=== PATIENT | female | born 1985 | race Two or more races ===

== ENCOUNTER 2020-02-09 21:14 | Emergency (ER) | payer OTHER ==
[~2020-02-09] VITALS: Ht 157.5 cm; Wt 57.2 kg
[2020-02-09 21:32] VITALS: BP 112/77
[2020-02-09 22:13] LABS: Basophils # (auto) 0 10 ^3/uL (0-0.2); Basophils % (auto) 0.6 % (0.0-2.0); Eosinophils # (auto) 0.1 10 ^3/uL (0-0.8); Eosinophils % (auto) 1.5 % (0.0-7.0); Hematocrit 39.8 % (36.0-46.0); Hemoglobin 13.5 g/dL (12.2-16.2); Lymphocytes # (auto) 1.8 10 ^3/uL (0.4-5.4); Lymphocytes % (auto) 24.5 % (10.0-50.0); Mean Corpuscular Hemoglobin 33.2 pg (28.0-32.0); Mean Corpuscular Hgb Conc. 33.8 g/dL (32.0-36.0); Mean Corpuscular Volume 98.3 fL (80.0-100.0); Monocytes # (auto) 0.5 10 ^3/uL (0-1.3); Monocytes % (auto) 6.9 % (0.0-12.0); Neutrophils % (auto) 66.5 % (37.0-80.0); Platelet Count (auto) 304 10^3/uL (140-450); Red Blood Cells 4.05 10^6/uL (4.0-5.20); Red Cell Distribution Width 12.6 % (11.8-14.3); White Blood Cell 7.5 10^3/uL (4.4-10.8)
[2020-02-09 22:30] LABS: Albumin 3.9 g/dL (3.4-5.0); Calcium 8.9 mg/dL (8.5-10.1); Potassium 4.1 mmol/L (3.5-5.1)
[2020-02-09 22:35] LABS: BUN/Creatinine Ratio 16.1; Bilirubin, Total 0.2 mg/dL (0.2-1.0); Total Protein 7.5 g/dL (6.4-8.2)
== END 2020-02-10 00:25 | disposition left against medical advice (07) ==
LOC: ER 21:14
DX: O20.9 Hemorrhage in early pregnancy, unspecified (principal); Z53.21 Procedure and treatment not carried out due to patient leaving prior to being seen by health care provider; Z3A.01 Less than 8 weeks gestation of pregnancy
CPT/HCPCS: 36415; 76801; 76817; 80053; 84702; 85025

== ENCOUNTER 2020-02-10 10:37 | Emergency (ER) | payer OTHER ==
[~2020-02-10] VITALS: Ht 157.5 cm; Wt 57.2 kg
[2020-02-10 11:07] VITALS: BP 122/84
== END 2020-02-10 11:22 | disposition home or self-care (01) ==
LOC: ER 10:37
DX: O03.9 Complete or unspecified spontaneous abortion without complication (principal); Z3A.01 Less than 8 weeks gestation of pregnancy; Z91.040 Latex allergy status

== ENCOUNTER 2021-12-18 15:12 | Emergency (ER) | payer OTHER ==
[~2021-12-18] VITALS: Ht 157.5 cm; Wt 62.6 kg
[2021-12-18 15:15] VITALS: BP 118/82
[2021-12-18] MEDS ORDERED: LACT10SO3 PO (16:10)
[2021-12-18] MEDS ORDERED: HYDR25SU21 PR (16:10)
== END 2021-12-18 16:27 | disposition home or self-care (01) ==
LOC: ER 15:12
DX: K64.4 Residual hemorrhoidal skin tags (principal); K59.00 Constipation, unspecified; Z91.040 Latex allergy status

== ENCOUNTER 2025-03-26 12:22 | Emergency (ER) | payer OTHER ==
[~2025-03-26] VITALS: Ht 157.5 cm; Wt 68.0 kg
[~2025-03-26 12:22] MED LIST: HYDR25SU21 PR; LACT10SO3 PO
--- NOTE | 2025-03-26 12:45 | ED.PDOC ---
Psychiatric HPI Comments This is a 39 year old female ALMA presenting to the ED with chief complaint of SI. EMS reports patient had SI this afternoon and took an unknown amount of her Lexapro in an attempt to overdose. Patient relays that she no longer has SI at this time upon arrival in the ED. EMS states patient's BP is stable on 130/80. Patient denies any HI, abdominal pain, headache, syncope, dizziness, or N/V. Time Seen by MD: 12:43 Primary Care Provider: SOHAIL Reviewed Notes: Nurses Notes, Nut Chopper Notes, Allergies Information Source: Patient Mode of Arrival: EMS Severity: Able to Care for Self, Able to Control Self Severity of Pain: None Severity of Mental Status: Moderate Severity of Symptoms: Moderate Timing: Hours Duration: Since onset Prehospital treatment: None Presents with: Suicidal Ideation Ingestion: Intentional, Multiple, Drug(s) Ingested (Lexapro) Circumstance: None Current substance abuse: None Stressors: None History of: Depression Past Medical History PAST MEDICAL HISTORY: Depression Surgical History: Denies all surgeries DIRECTOR SCRIPT History: No Pertinent DIRECTOR SCRIPT History Family History Family History: Reviewed,noncontributory to illness Social History Smoker: Non-Smoker Alcohol: Occasionally Drugs: Denies Drug Use Lives In: Home Constitutional: denies: chills, diaphoresis, fatigue, fever, malaise, sweats, weakness, others EENTM: denies: blurred vision, double vision, ear bleeding, ear discharge, ear drainage, ear pain, ear ringing, eye pain, eye redness, hearing loss, mouth pain, mouth swelling, nasal discharge, nose bleeding, nose congestion, nose pain, photophobia, tearing, throat pain, throat swelling, voice changes, others Respiratory: denies: cough, hemoptysis, orthopnea, SOB at rest, shortness of breath, SOB with excertion, stridor, wheezing, others Cardiovascular: denies: chest pain, dizzy spells, diaphoresis, Dyspnea on exertion, edema, irregular heart beat, left arm pain, lightheadedness, palpitations, PND, syncope, others Gastrointestinal: denies: abdomen distended, abdominal pain, blood streaked bowels, constipated, diarrhea, dysphagia, difficulty swallowing, hematemesis, melena, nausea, poor appetite, poor fluid intake, rectal bleeding, rectal pain, vomiting, others Genitourinary: denies: abnormal vagina bleeding, burning, dyspareunia, dysuria, flank pain, frequency, hematuria, incontinence, pain, , vagina discharge, urgency, others Neurological: denies: dizziness, fainting, headache, left sided numbness, left sided weakness, numbness, paresthesia, pre-existing deficit, right sided numbness, right sided weakness, seizure, speech problems, tingling, tremors, weakness, others Musculoskeletal: denies: back pain, gout, joint pain, joint swelling, muscle pain, muscle stiffness, neck pain, others Integumetry: denies: bruises, change in color, change in hair/nails, dryness, laceration, lesions, lumps, rash, wounds, others Allergic/Immunocompromised: denies: Difficulty Healing, Frequent Infections, Hives, Itching, others Hematologic/Lymphatic: denies: anemia, blood clots, easy bleeding, easy bruising, swollen glands, others Endocrine: denies: excessive hunger, excessive sweating, excessive thirst, excessive urination, flushing, intolerance to cold, intolerance to heat, unexplained weight gain, unexplained weight loss, others Psychiatric: reports: depression, suicidal; denies: anxiety, bipolar disorder, hopeless, panic disorder, schizophrenia, sleepless, others All Other Systems: Reviewed and Negative Physical Exam General Appearance: Moderate Distress, Normal HEENT: Normal ENT Inspection, Pharynx Normal, TMs Normal Neck: Full Range of Motion, Non-Tender, Normal, Normal Inspection Respiratory: Chest Non-Tender, Lungs Clear, No Accessory Muscle Use, No Respiratory Distress, Normal Breath Sounds Cardiovascular: No Edema, No JVD, No Murmur, No Gallop, Normal Peripheral Pulses, Regular Rate/Rhythm Breast Exam: Deferred Gastrointestinal: No Organomegaly, Non Tender, No Pulsatile Mass, Normal Bowel Sounds, Soft Genitalia: Deferred Pelvic: Deferred Rectal: Deferred Extremities: No calf tenderness, Normal capillary refill, Normal inspection, Normal range of motion, Non-tender, No pedal edema Musculoskeletal : Apperance: Normal Neurologic: Alert, marketing technology specialist II-XII nml as Tested, No Motor Deficits, Normal Affect, Normal Mood, No Sensory Deficits Cerebellar Function: Normal Reflexes: Normal Skin: Dry, Normal Color, Warm Peripheral Pulses: 3+ Radial (R), 3+ Radial (L) Lymphatic: No Adenopathy Was a procedure done? Was a procedure done?: No Psych Differential Dx Psych. Differential Dx: Depression, Suicidal X-Ray, Labs, Meds, VS Patient alert. Vitals stable. Came in because she wanted to harm herself. Answering questions. Abdomen is soft nontender. No sign of distress. She now has a change of mind of harm himself. Medically cleared. Psychiatric evaluation. Continue monitoring. Time of 1ST Reevaluation: 13:42 Reevaluation 1ST: Unchanged Patient Education/Counseling: Diagnosis, Treatment Family Education/Counseling: No Family Present Departure 1 Departure Time of Disposition: 13:10 Impression: Primary Impression: Suicidal ideation Disposition: 30 STILL A PATIENT Condition: Good Critical Care Note Critical Care Time?: No Stability Stability form required: No Heart Score Heart Score: Heart Score Response (Comments) Value History Slightly Suspicious 0 EKG Normal 0 Age <45 0 Risk Factors No known risk factors 0 Troponin N/A 0 Total 0 I personally scribed for ANGELICA MANTILLA MD ([email or web address]) on 03/26/25 at 12:45. Electronically submitted by Jesus Spear ([email or web address]). ANGELICA MANTILLA MD Mar 26, 2025 12:45
--- NOTE | 2025-03-26 13:23 | ECG ---
[facility] Test Date: 2025-03-26 Test Time: 13:21:38 Pat Name: JO ANN SWIFT Department: Room: Gender: F Shuttlecock Feather Trimmer: ATIYA : 1985 Requested By: ANGELICA MANTILLA Order Number: [id number] Reading MD: Alexis Pete Measurements Intervals [place] Rate: 80 P: 64 MS: 142 QRS: 29 QRSD: 78 T: 20 QT: 392 QTc: 453 Interpretive Statements Sinus rhythm Probable left atrial enlargement Low voltage, precordial leads Borderline T abnormalities, anterior leads Electronically Signed On 04-01-2025 19:09:59 PDT by Alexis Pete Please click the below link to view image of tracing.
[2025-03-26 21:20] LABS: Acetaminophen < 2.0 UG/ML (10.0-20.0); Alanine Aminotransferase 16 U/L (7-40); Albumin 4.4 g/dL (3.2-4.8); Alkaline Phosphatase 84 U/L (46-116); Anion Gap 9 (5-15); BUN/Creatinine Ratio 11.8 (10.0-20.0); Bilirubin, Total 0.5 mg/dL (0.2-1.0); Blood Urea Nitrogen 9 mg/dL (9-23); Calcium 9.5 mg/dL (8.7-10.4); Carbon Dioxide 29 mmol/L (20-31); Chloride 105 mmol/L (98-107); Magnesium 2.2 mg/dL (1.6-2.6); Potassium 4.3 mmol/L (3.5-5.1); Salicylate < 3.0 mg/dL (-30); Sodium 143 mmol/L (136-145); Total Protein 7.4 g/dL (5.7-8.2)
[2025-03-26 21:25] LABS: Glucose 73 mg/dL (74-106)
[2025-03-26 22:47] LABS: Cannabinoid Screen, Urine Neg (NEGATIVE); Opiate Scree,Urine Neg (NEGATIVE); Phencyclidine Screen, Urine Neg (NEGATIVE)
[2025-03-26 22:48] LABS: Amphetamine Screen, Urine Neg (NEGATIVE); Barbiturate Scree,Urine Neg (NEGATIVE); Benzodiazephine Screen, Urine Neg (NEGATIVE); Cocaine Screen, Urine Neg (NEGATIVE)
[2025-03-27 08:00] VITALS: PULSE 87; RESP 20; O2SAT 95
[2025-03-27 12:00] VITALS: BP 122/86; PULSE 73; RESP 21; TEMP 98.1; O2SAT 97
--- NOTE | 2025-03-27 14:27 | ECG ---
[facility] Test Date: 2025-03-26 Test Time: 23:49:55 Pat Name: JO ANN SWIFT Department: ER Room: Gender: F Tufter Hand: ELLIS : 1985 Requested By: ROM SAMS Order Number: [id number] Reading MD: Alexis Pete Measurements Intervals [place] Rate: 85 P: 48 NE: 142 QRS: 38 QRSD: 75 T: 0 QT: 374 QTc: 445 Interpretive Statements Sinus rhythm Low voltage, precordial leads Borderline T abnormalities, diffuse leads Electronically Signed On 04-01-2025 19:13:59 PDT by Alexis Pete Please click the below link to view image of tracing.
--- NOTE | 2025-03-27 17:21 | DVHINCON2 ---
Date of Service if different f: Mar 27, 2025 Consultation (GERLACH) Labs Laboratory Tests Test 03/26/25 20:35 03/26/25 21:20 Sodium Level 143 mmol/L (136-145) Potassium Level 4.3 mmol/L (3.5-5.1) Chloride Level 105 mmol/L (98-107) Carbon Dioxide Level 29 mmol/L (20-31) Anion Gap 9 (5-15) Blood Urea Nitrogen 9 mg/dL (9-23) Creatinine 0.76 mg/dL (0.550-1.02) Glomerular Filtration Rate Calc 103 mL/min (>90) BUN/Creatinine Ratio 11.8 (10.0-20.0) Serum Glucose 73 mg/dL (74-106) Calcium Level 9.5 mg/dL (8.7-10.4) Magnesium Level 2.2 mg/dL (1.6-2.6) Total Bilirubin 0.5 mg/dL (0.2-1.0) Aspartate Amino Transf (AST/SGOT) 18 U/L (13-40) Alanine Aminotransferase (ALT/SGPT) 16 U/L (7-40) Alkaline Phosphatase 84 U/L (46-116) Total Protein 7.4 g/dL (5.7-8.2) Albumin 4.4 g/dL (3.2-4.8) Salicylates Level < 3.0 mg/dL (-30) Acetaminophen Level < 2.0 UG/ML (10.0-20.0) Plasma/Serum Blood Alcohol < 3.0 mg/dL (<10) Urine Opiates Screen Neg (NEGATIVE) Urine Fentanyl Screen Neg (NEGATIVE) Urine Barbiturates Screen Neg (NEGATIVE) Urine Phencyclidine Screen Neg (NEGATIVE) Urine Amphetamines Screen Neg (NEGATIVE) Urine Benzodiazepines Screen Neg (NEGATIVE) Urine Cocaine Screen Neg (NEGATIVE) Urine Cannabinoids Screen Neg (NEGATIVE) Appetite: Good Appearance: Stated age, Groomed, Clean Psychomotor activity: WNL Behavioral: Cooperative Eye contact: Appropriate Affect: Appropriate Mood: Euthymic Thought processes: Linear/Goal-directed Thought content: WNL Suicidal ideations: Absent Homicidal ideations: Absent Orientation: Person, Place, Time, Situation Memory intact: Recent Intellect: Average Abstractability: WNL Concentration: Adequate Attention: Adequate Judgement: WNL Insight: Fair Vitals Vital Signs Date Time Temp Pulse Resp B/P (MAP) Pulse Ox O2 Delivery O2 Flow Rate FiO2 03/27/25 12:00 98.1 75 21 122/86 (98) 97 98.1 03/27/25 08:00 Room Air* 0 21 Treatment plan discussed: Family Medication adjusted: No Diagnosis: adjustment disorder V unspecified mood disorder Plan : Patient presently regrets her actions and appears future-oriented, and has a good support system. Her family is in agreement that inpatient psych admission would not be helpful. Patient agrees to follow up outpatient with individual psychotherapy Recommend discharge home. Please provide available outpatient mental health resources. Discussed to return to ED or 911 if suicidal/homicidal ideation and patient agrees. Patient and family agree with plan History of Present Illness Reason for Consult : patient had recent suicide attempt HPI : This is a 39-year-old female with prior history PMDD, she presents here after ingesting about 60 tablets of Lexapro, a mixtures of both 5mg and 10mg. Patient is evaluated via telepsychiatry platform. She reports recent stressors of divorce from of 20 years. 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 She reports lack of adequate sleep the past week. She is able fall asleep, but waking up several times at night and not feeling rested. She reports not thinking an just took all the pills. 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 She reports immediate regret after ingesting the pills and called ex- right away who called for ambulance. She reports being grateful to be alive. She is looking forward to returning home to be with her children. She presently denies suicidal/homicidal ideation. She denies past or current thoughts of not wanting to be alive. She denies feeling depressed, anhedonia or hopelessness. She denies any history of jessica symptoms or psychosis. She has no auditory/visual hallucinations or paranoid thoughts. She gives consent to speak to ex-, Miles ([phone]). He agrees that it was a temporary lapse in judgement. He denies any prior mental health diagnosis, suicide attempt or concerns for reattempt. He does not feel inpatient hospitalization would be beneficial. He also reports he has taken some time of work to be with her and provide support. They are currently going to marriage counseling. They have discussed individual counseling and she is in agreement. Past Psychiatric History : She reports hx of PMDD and prescribed lexapro for the past 2 years by PCP which as helped with her symptoms. She denies other mental health diagnoses, psych admissions, or holds. She denies other suicide attempts Past Medical History : she denies Social History : She lives with her 2 children, ages, 14 and 4. Ex- moved out 2 months ago and comes over to watch children when she needs help. Ex-hu whit is renting a room in a house so children cannot go to him. She identifies ex- as a good source of support, for 20 years and have known each other much longer. She denies any known family history of mental problems. She denies any substance use, and alcohol and UDS are negative. 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 THEODORA PAZ DNP Mar 27, 2025 17:21
--- NOTE | 2025-03-27 18:14 | ED.PDOC ---
Departure 1 Departure Time of Disposition: 18:13 (Patient was medically cleared, Patient was cleared by Psychiatry. We will discharge patient home with outpatient follow up) Impression: Primary Impression: Suicidal ideation Disposition: HOME / SELF CARE / HOMELESS Condition: Stable Additional Instructions: It is important to take your regular medications and follow up with the regular doctors. RIAN GONZALEZ MD Mar 27, 2025 18:14
== END 2025-03-27 18:50 | disposition home or self-care (01) ==
LOC: EDBD 12:22 → ER 12:22
DX: R45.851 Suicidal ideations (principal); F32.81 Premenstrual dysphoric disorder; Z79.899 Other long term (current) drug therapy
CPT/HCPCS: 36415; 80053; 80307; 80320; 80329; 83735; 93005